=== PATIENT | male | born 1990 | race Caucasian/White ===

== ENCOUNTER 2022-01-07 21:16 | Inpatient (IN) | payer BC ==
[2022-01-07] MEDS ORDERED: HYDROmorphone 1 MG/ML 1 ML SYRINGE IVP STA ×3 (21:20→23:54)
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
[2022-01-07 21:44] LABS: Basophils # (A) 0.1 k/uL (0-0.2); Basophils % (A) 1 %; Eosinophils # (A) 0.4 k/uL (0-0.7); Eosinophils % (A) 4 %; HCT 42.7 % (39.0-53.0); HGB 14.6 gm/dL (13.0-17.5); Lymphocytes # (A) 1.8 k/uL (1.0-4.8); Lymphocytes % (A) 21 %; MCHC 34.1 g/dL (31.0-37.0); MCV 90.9 fL (80.0-100.0); Mean Platelet Volume 6.7; Monocytes # (A) 0.6 k/uL (0-1.0); Monocytes % (A) 7 %; Neutrophils # (A) 5.6 k/uL (1.3-7.7); Neutrophils % (A) 65 %; Platelet Count 269 k/uL (150-450); RDW 12.1 % (11.5-15.5); WBC 8.6 k/uL (3.8-10.6)
[2022-01-07 21:55] LABS: ALT 28 U/L (4-49); AST 30 U/L (17-59); African American GFR (CKD) >90 (>60 ml/min/1.73 sqM); Albumin 4.6 g/dL (3.5-5.0); Alkaline Phosphatase 57 U/L (38-126); Anion Gap 15 mmol/L; Blood Urea Nitrogen 19 mg/dL (9-20); Calcium 8.6 mg/dL (8.4-10.2); Carbon Dioxide 23 mmol/L (22-30); Chloride 102 mmol/L (98-107); Glucose 125 mg/dL (74-99); Non-African American GFR(CKD) >90 (>60 ml/min/1.73 sqM); Potassium 3.7 mmol/L (3.5-5.1); Sodium 140 mmol/L (137-145); Total Bilirubin 0.7 mg/dL (0.2-1.3); Total Protein 6.9 g/dL (6.3-8.2)
[2022-01-07 21:59] LABS: INR 0.9 (<1.2); Prothrombin Time 10.2 sec (9.0-12.0)
[2022-01-07 22:01] LABS: Alcohol 132 mg/dL
[2022-01-07 22:11] LABS: Partial Thromboplastin Time 20.8 sec (22.0-30.0)
--- NOTE | 2022-01-07 22:19 | XR ---
EXAMINATION TYPE: XR chest 1V portable DATE OF EXAM: 01/07/2022 COMPARISON: None HISTORY: Chest pain TECHNIQUE: FINDINGS: There is some increased density over the left upper lobe that could be some airspace infilt rate. Right lung is clear. No pneumothorax. Trachea is midline. No pleural effusion. No rib fracture seen. There is left clavicle and left scapula fracture. IMPRESSION: There is probably some left upper lobe infiltrate. Normal heart. Fractures of the left clavicle and scapula.
--- NOTE | 2022-01-07 22:20 | XR ---
EXAMINATION TYPE: XR shoulder complete LT DATE OF EXAM: 01/07/2022 COMPARISON: NONE HISTORY: Pain TECHNIQUE: 2 views FINDINGS: There is midshaft fracture of the left clavicle without significant displacement. There is a transverse fracture through the body of the scapula. No dislocation at the shoulder joint. The AC j oint appears normal. IMPRESSION: Nondisplaced fractures of the clavicle and scapula.
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
[2022-01-07] MEDS ORDERED: ONDANSETRON 4 MG/2 ML VIAL IVP PRN (23:50)
[2022-01-07] MEDS ORDERED: NALOXONE 0.4 MG/ML 1 ML VIAL IV PRN (23:50)
[2022-01-07] MEDS ORDERED: ACETAMINOPHEN TAB 325 MG TAB PO PRN (23:50)
[2022-01-07] MEDS ORDERED: SODIUM CHLORIDE 0.9% 1,000 ML IV ONE (23:54)
[2022-01-08 00:26] LABS: Glucose,Whole Blood 120 mg/dL (70-110)
[2022-01-08 01:36] LABS: Amphetamine Screen,Urine Not Detected (NotDetected); Barbiturate Screen,Urine Not Detected (NotDetected); Benzodiazepines Screen,Urine Not Detected (NotDetected); Cocaine Screen,Urine Not Detected (NotDetected); Methadone Screen, Urine Not Detected (NotDetected); Opiate Screen,Urine Detected (NotDetected); Oxycodone Screen, Urine Not Detected (NotDetected); Phencyclidine Screen,Urine Not Detected (NotDetected); Tricyclic Antidepressant,Urine Not Detected (NotDetected); Urn Cannabinoid Scrn Not Detected (NotDetected)
[2022-01-08] MEDS: HYDROmorphone 1 MG/ML 1 ML SYRINGE IVP PRN ×6 (04:39→21:23)
[2022-01-08] MEDS: SODIUM CHLORIDE 0.9% 1,000 ML IV SCH ×4 (05:30→23:24)
[2022-01-08] MEDS: HYDROcodone/APAP 5-325MG 1 EACH TAB PO PRN ×2 (06:42→10:47)
[2022-01-08] MEDS: FAMOTIDINE 20 MG TAB PO SCH ×2 (08:23→21:23)
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
[2022-01-08] MEDS ORDERED: HYDROcodone/APAP 7.5-325MG 1 EACH TAB PO PRN (11:24)
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
[2022-01-08] MEDS: KETOROLAC 15 MG/ML 1 ML VIAL IVP SCH ×3 (11:37→23:51)
--- NOTE | 2022-01-08 12:53 | XR ---
EXAMINATION TYPE: XR Hip Complete LT DATE OF EXAM: 01/08/2022 COMPARISON: NONE HISTORY: Pain TECHNIQUE: 2 views submitted FINDINGS: There is no evidence of erosive change or acute fracture. IMPRESSION: 1. No evidence of acute fracture or dislocation.
--- NOTE | 2022-01-08 13:00 | XR ---
EXAMINATION TYPE: XR ribs bilateral DATE OF EXAM: 01/08/2022 COMPARISON: 01/07/2010 HISTORY: Pain TECHNIQUE: Frontal view of the chest and oblique views of the ribs were obtained bilaterally FINDINGS: There is bilateral subsegmental consolidation. No sizable effusions. There are deformities involving the anterior or lateral margin of the left first through ninth ribs with mild displacement. There is a displaced comminuted fracture of the clavicle and fracture which appears to be comminuted involving the scapula. Ribs compatible with fracture. IMPRESSION: 1. Displaced fractures involving the left first through ninth ribs. 2. Comminuted fracture of the scapula and left clavicle. 3. Basilar subsegmental atelectasis or infiltrate. No sizable pneumothorax.
[2022-01-08] MEDS ORDERED: MELOXICAM 7.5 MG TAB PO SCH (14:15)
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
[2022-01-08] MEDS: busPIRone HCl 5 MG TAB PO SCH (16:42)
[2022-01-08] MEDS: SERTRALINE 100 MG TAB PO SCH (16:42)
[2022-01-08] MEDS: FLUTICASONE 50MCG/SPRAY NASAL 16GM EA NOSTRIL SCH (21:23)
[2022-01-08] MEDS: MONTELUKAST 10 MG TAB PO SCH (21:23)
[2022-01-09] MEDS: HYDROmorphone 1 MG/ML 1 ML SYRINGE IVP PRN ×4 (00:38→21:17)
[2022-01-09] MEDS: SODIUM CHLORIDE 0.9% 1,000 ML IV SCH ×2 (00:40→16:57)
[2022-01-09] MEDS: KETOROLAC 15 MG/ML 1 ML VIAL IVP SCH ×4 (06:19→23:18)
[2022-01-09] MEDS ORDERED: oxyCODONE-APAP 5-325MG 1 EACH TAB PO PRN (08:48)
[2022-01-09] MEDS: LORATADINE 10 MG TAB PO SCH (08:54)
[2022-01-09] MEDS: SERTRALINE 100 MG TAB PO SCH (08:54)
[2022-01-09] MEDS: ASPIRIN 81 MG PO SCH (08:54)
[2022-01-09] MEDS: busPIRone HCl 5 MG TAB PO SCH (08:54)
[2022-01-09] MEDS: FAMOTIDINE 20 MG TAB PO SCH ×2 (08:55→20:16)
[2022-01-09] MEDS: KETOTIFEN 0.025% OPHTH DROPS 5 ML BTL BOTH EYES SCH ×2 (08:55→20:16)
[2022-01-09] MEDS: FLUTICASONE 50MCG/SPRAY NASAL 16GM EA NOSTRIL SCH ×2 (08:56→20:16)
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
[2022-01-09] MEDS: HEPARIN SODIUM,PORCINE/PF 5,000 UNIT/0.5 ML SYRINGE SQ SCH ×2 (11:37→20:16)
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
[2022-01-09] MEDS: LIDOCAINE 5% PATCH TOPICAL SCH (16:54)
[2022-01-09] MEDS: oxyCODONE-APAP 10-325MG 1 EACH TAB PO PRN ×2 (16:55→23:18)
[2022-01-09] MEDS: MONTELUKAST 10 MG TAB PO SCH (20:16)
[2022-01-10] MEDS: SODIUM CHLORIDE 0.9% 1,000 ML IV SCH ×2 (02:35→10:07)
[2022-01-10] MEDS: HYDROmorphone 1 MG/ML 1 ML SYRINGE IVP PRN ×2 (03:59→13:47)
[2022-01-10] MEDS: KETOROLAC 15 MG/ML 1 ML VIAL IVP SCH ×2 (05:58→11:20)
[2022-01-10] MEDS: oxyCODONE-APAP 10-325MG 1 EACH TAB PO PRN (07:30)
[2022-01-10] MEDS: busPIRone HCl 5 MG TAB PO SCH (07:31)
[2022-01-10] MEDS: LORATADINE 10 MG TAB PO SCH (07:31)
[2022-01-10] MEDS: FAMOTIDINE 20 MG TAB PO SCH (07:31)
[2022-01-10] MEDS: ASPIRIN 81 MG PO SCH (07:31)
[2022-01-10] MEDS: SERTRALINE 100 MG TAB PO SCH (07:31)
[2022-01-10] MEDS: KETOTIFEN 0.025% OPHTH DROPS 5 ML BTL BOTH EYES SCH (07:32)
[2022-01-10] MEDS: FLUTICASONE 50MCG/SPRAY NASAL 16GM EA NOSTRIL SCH (07:32)
[2022-01-10] MEDS: HEPARIN SODIUM,PORCINE/PF 5,000 UNIT/0.5 ML SYRINGE SQ SCH (07:34)
[2022-01-10 08:08] VITALS: BP 118/78; RESP 17; TEMP 98.9
[2022-01-10 10:19] VITALS: PULSE 85
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
[2022-01-10] MEDS: LIDOCAINE 5% PATCH TOPICAL SCH (13:50)
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
== END 2022-01-10 14:48 | disposition home or self-care (01) | DRG 184 ==
LOC: EC 21:16 → 3SCARD 23:50
PROVIDERS: ADMIT Surgery; ATTEND Surgery
DX: S22.42XA Multiple fractures of ribs, left side, initial encounter for closed fracture (principal); J98.11 Atelectasis; S26.91XA Contusion of heart, unspecified with or without hemopericardium, initial encounter; F32.A Depression, unspecified; E66.9 Obesity, unspecified; S42.012A Anterior displaced fracture of sternal end of left clavicle, initial encounter for closed fracture; S42.112A Displaced fracture of body of scapula, left shoulder, initial encounter for closed fracture; M25.552 Pain in left hip; M54.50 Low back pain, unspecified; F17.210 Nicotine dependence, cigarettes, uncomplicated; G89.4 Chronic pain syndrome; R77.8 Other specified abnormalities of plasma proteins; Y90.6 Blood alcohol level of 120-199 mg/100 ml; R33.9 Retention of urine, unspecified; I51.7 Cardiomegaly; F41.9 Anxiety disorder, unspecified; R03.1 Nonspecific low blood-pressure reading; R00.0 Tachycardia, unspecified; V86.55XA Driver of 3- or 4- wheeled all-terrain vehicle (ATV) injured in nontraffic accident, initial encounter; Y92.007 Garden or yard of unspecified non-institutional (private) residence as the place of occurrence of the external cause; Z79.899 Other long term (current) drug therapy; Z79.1 Long term (current) use of non-steroidal anti-inflammatories (NSAID); Z68.28 Body mass index [BMI] 28.0-28.9, adult; Z79.891 Long term (current) use of opiate analgesic; Z72.89 Other problems related to lifestyle
CPT/HCPCS: 36415; 71045; 71110; 71260; 72125; 73502; 74177; 80053; 80306; 80320; 83605; 84484; 85025; 85610; 85730; 86850; 86900; 86901; 93005; 93306; 94760; 96374; 96376; 99285

== ENCOUNTER 2022-01-28 10:19 | Day surgery (SDC) | payer BC ==
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
[~2022-01-28 10:19] MED LIST: DEXAMETHASONE SOD PHOSPHATE 4 MG/ML 1 ML VIAL IV ONE; HYDROmorphone 0.5 MG/0.5 ML SYRINGE IVP PRN; LACTATED RINGERS 1,000 ML IV SCH; LIDOCAINE 1% (10MG/ML) FOR IV START INTRADERMA PRN; ONDANSETRON 4 MG/2 ML VIAL IVP ONE
[2022-01-28] MEDS ORDERED: MIDAZOLAM 2 MG/2 ML VIAL IVP ONE (11:32)
[2022-01-28] MEDS ORDERED: fentaNYL (PF) 50 MCG/ML 2 ML AMP IVP ONE (11:33)
[2022-01-28] MEDS ORDERED: PHENYLEPHRINE-0.9% NACL SYG 1,000 MCG/10 ML SYRINGE ONE (11:46)
[2022-01-28] MEDS ORDERED: SUCCINYLCHOLINE CHLORIDE 200 MG/10 ML VIAL IV ONE (11:46)
[2022-01-28] MEDS ORDERED: LIDOCAINE 2% INJ 20 MG/ML (2 ML VIAL) ONE (11:46)
[2022-01-28] MEDS ORDERED: PROPOFOL 10 MG/ML 20 ML VIAL IV ONE (11:46)
[2022-01-28] MEDS ORDERED: ROPIVACAINE 5 MG/ML 30 ML VIAL ONE (11:46)
[2022-01-28] MEDS ORDERED: LACTATED RINGERS 1,000 ML IV ONE (12:59)
--- NOTE | 2022-01-28 13:33 | P.ANPRN ---
Procedure Note - Anesthesia - Nerve Block Performed Left Interscalene Single Time Out Performed: Yes (1130) Date of Procedure: 01/28/22 Procedure Start Time: 11:31 Procedure Stop Time: 11:36 Location of Patient: PreOp Indication: Acute Post-Operative Pain, Requested by Surgeon Specifically requested for management of pain by DrBelen: Edmundo Mcwilliams Sedation Type: Sedate with meaningful contact maintained Preparation: Sterile Prep Position: Supine Catheter: None Needle Types: Pajunk Needle Gauge: 21 Ultrasound used to visualize needle placement: Yes Ultrasound used to observe medication spread: Yes Injectate: 0.5% Ropivacaine (see comment for volume) (30cc) Blood Aspirated: No Pain Paresthesia on Injection Noted: No Resistance on Injection: Normal Image Stored and Saved: Yes Events: Uneventful and Well Tolerated
--- NOTE | 2022-01-28 13:56 | FL ---
EXAMINATION TYPE: FL guidance operating room DATE OF EXAM: 01/28/2022 HISTORY: Fluoroscopy time 3 seconds of fluoroscopy provided. IMPRESSION: 1. Fluoroscopy time.
--- NOTE | 2022-01-28 13:56 | XR ---
EXAMINATION TYPE: XR clavicle LT DATE OF EXAM: 01/28/2022 COMPARISON: NONE HISTORY: Postop TECHNIQUE: Single intraoperative views FINDINGS: Postsurgical changes appear in near anatomic alignment. IMPRESSION: Postoperative change.
[2022-01-28 14:21] VITALS: TEMP 97
[2022-01-28 15:27] VITALS: RESP 15
[2022-01-28 15:51] VITALS: BP 114/76; PULSE 87
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
== END 2022-01-28 16:05 | disposition home or self-care (01) ==
LOC: OR 10:19
PROVIDERS: ATTEND Orthopaedic Surgery Hand Surgery
DX: S42.022A Displaced fracture of shaft of left clavicle, initial encounter for closed fracture (principal); F32.A Depression, unspecified; Z79.899 Other long term (current) drug therapy; X58.XXXA Exposure to other specified factors, initial encounter
CPT/HCPCS: 64415; 76942; 73000; 23515; C1713; J2250; J0330; J1100; J0690; J2405; J3010; J2795; J2370; J2704; J2001

== ENCOUNTER 2022-02-04 13:22 | Emergency (ER) | payer BC ==
[2022-02-04 13:37] VITALS: TEMP 98.2
[2022-02-04] MEDS ORDERED: KETOROLAC 15 MG/ML 1 ML VIAL IVP STA (15:26)
[2022-02-04] MEDS ORDERED: SODIUM CHLORIDE 0.9% 1,000 ML IV STA (15:26)
[2022-02-04] MEDS ORDERED: ONDANSETRON 4 MG/2 ML VIAL IVP STA (15:26)
--- NOTE | 2022-02-04 15:45 | ED ---
Extremity Problem HPI - General Chief complaint: Extremity Problem,Nontraumatic Stated complaint: Lt Arm Blood Clot Time Seen by Provider: 02/04/22 15:08 Source: patient, RN notes reviewed Mode of arrival: ambulatory Limitations: no limitations - History of Present Illness Initial comments: This is a 31-year-old male who presents to the emergency department for a blood clot in the left arm. He had an outpatient ultrasound ordered by Dr. Mcwilliams earlier today. This revealed the left upper extremity DVT, and Dr. Mcwilliams instructed him to come to the emergency department. The pain and swelling to the left arm has been present for 3-4 days. On 01/28, he had surgical repair of a broken left collarbone. He does note associated shortness of breath with the blood clot in the left arm, but denies any chest pain. Denies any fevers, chills, sore throat, cough, chest pain, palpitations, abdominal pain, nausea, vomiting, diarrhea, back pain, or headaches. MD Complaint: extremity pain, extremity swelling Onset/Timin -: days(s) Location: left, upper extremity Associated Symptoms: denies other symptoms - Related Data Home Medications Medication Instructions Recorded Confirmed Cetirizine HCl 10 mg PO DAILY 01/08/22 01/28/22 Fluticasone Nasal [place] [Flonase 1 spr EA NOSTRIL BID 01/08/22 01/28/22 Nasal [place]] Montelukast [Singulair] 10 mg PO DAILY PRN 01/08/22 01/28/22 Olopatadine HCl [Pataday Once 1 drop BOTH EYES DAILY 01/08/22 01/28/22 Daily Relief] Sertraline [Zoloft] 100 mg PO DAILY 01/08/22 01/28/22 busPIRone HCL [Buspar] 7.5 mg PO DAILY 01/08/22 01/28/22 Previous Rx's Medication Instructions Recorded Ibuprofen [Motrin] 600 mg PO Q8HR PRN #30 tab 01/10/22 Lidocaine 5% Patch [Lidoderm 5% 1 patch TOPICAL DAILY #5 patch 01/10/22 Patch] oxyCODONE-APAP 10-325MG [Percocet 1 each PO Q6H PRN #12 tab 01/10/22 10-325 mg] Apixaban [Eliquis] 10 mg PO BID 7 Days #28 tablet 02/04/22 Allergies Allergy/AdvReac Type Severity Reaction Status Date / Time No Known Allergies Allergy Verified 02/04/22 13:37 Review of Systems ROS Statement: Those systems with pertinent positive or pertinent negative responses have been documented in the HPI. ROS Other: All systems not noted in ROS Statement are negative. Past Medical History Past Medical History: No Reported History History of Any Multi-Drug Resistant Organisms: None Reported Past Surgical History: Tonsillectomy Additional Past Surgical History / Comment(s): collar bone repair Past Psychological History: Depression Smoking Status: Never smoker General Exam Limitations: no limitations General appearance: alert, in no apparent distress Head exam: Present: atraumatic, normocephalic, normal inspection Respiratory exam: Present: normal lung sounds bilaterally. Absent: respiratory distress, wheezes, rales, rhonchi, stridor Cardiovascular Exam: Present: regular rate, normal rhythm, normal heart sounds. Absent: systolic murmur, diastolic murmur, rubs, gallop, clicks Extremities exam: Present: other (Pain, erythema, and swelling to the left upper extremity, particularly near the left humerus.) Neurological exam: Present: alert, oriented X3, CN II-XII intact Psychiatric exam: Present: normal affect, normal mood Skin exam: Present: warm, dry, intact, normal color. Absent: rash Course Vital Signs 02/04/22 02/04/22 02/04/22 13:33 16:36 17:50 Temperature 98.2 F Pulse Rate 100 96 94 Respiratory 20 18 18 Rate Blood Pressure 136/84 128/81 124/81 O2 Sat by Pulse 99 98 96 Oximetry Medical Decision Making - Medical Decision Making This is a 31-year-old male who presents to the emergency department with a left upper extremity DVT. Given the associated shortness of breath, CTA of the chest was obtained. This did not identify a pulmonary embolus, however it did note a left pleural effusion with infiltrate and atelectasis. Discussed with the patient that he needs to be sure that he is taking several deep breaths a day to reduce the shortness of breath from the atelectasis. Given that the clot is limited to the arm, the patient is stable for discharge home. He was given 10 mg of Eliquis in the emergency department and a 7 day course was sent to his pharmacy. He will take 10 mg twice daily for 7 days. Follow-up with vascular surgery was provided, he will need to make an appointment and discuss with them how long after the 7 days he will need to remain on the Eliquis. Return precautions reviewed in depth, the patient is instructed to return to the emergency department with any new, worsening, or concerning symptoms. Patient verbalized understanding. This case was discussed in detail with the attending ED physician. Presentation, findings, and treatment plan discussed in detail as well. - Lab Data Result diagrams: 02/04/22 15:42 02/04/22 15:42 Lab Results 02/04/22 02/04/22 02/04/22 Range/Units 15:42 15:42 15:42 WBC 8.0 (3.8-10.6) k/uL RBC 4.91 (4.30-5.90) m/uL Hgb 15.2 (13.0-17.5) gm/dL Hct 43.7 (39.0-53.0) % MCV 89.1 (80.0-100.0) fL MCH 31.0 (25.0-35.0) pg MCHC 34.8 (31.0-37.0) g/dL RDW 11.8 (11.5-15.5) % Plt Count 413 (150-450) k/uL MPV 6.9 Neutrophils % 64 % Lymphocytes % 21 % Monocytes % 6 % Eosinophils % 7 % Basophils % 1 % Neutrophils # 5.1 (1.3-7.7) k/uL Lymphocytes # 1.6 (1.0-4.8) k/uL Monocytes # 0.5 (0-1.0) k/uL Eosinophils # 0.6 (0-0.7) k/uL Basophils # 0.0 (0-0.2) k/uL PT (9.0-12.0) sec INR (<1.2) APTT (22.0-30.0) sec Sodium 141 (137-145) mmol/L Potassium 4.4 (3.5-5.1) mmol/L Chloride 101 (98-107) mmol/L Carbon Dioxide 25 (22-30) mmol/L Anion Gap 15 mmol/L BUN 17 (9-20) mg/dL Creatinine 0.83 (0.66-1.25) mg/dL Est GFR (CKD-EPI)AfAm >90 (>60 ml/min/1.73 sqM) Est GFR (CKD-EPI)NonAf >90 (>60 ml/min/1.73 sqM) Glucose 108 H (74-99) mg/dL Calcium 9.6 (8.4-10.2) mg/dL Total Bilirubin 0.4 (0.2-1.3) mg/dL AST 31 (17-59) U/L ALT 38 (4-49) U/L Alkaline Phosphatase 107 (38-126) U/L Troponin I <0.012 (0.000-0.034) ng/mL NT-Pro-B Natriuret Pep pg/mL Total Protein 7.7 (6.3-8.2) g/dL Albumin 4.6 (3.5-5.0) g/dL 02/04/22 02/04/22 Range/Units 15:42 15:42 WBC (3.8-10.6) k/uL RBC (4.30-5.90) m/uL Hgb (13.0-17.5) gm/dL Hct (39.0-53.0) % MCV (80.0-100.0) fL MCH (25.0-35.0) pg MCHC (31.0-37.0) g/dL RDW (11.5-15.5) % Plt Count (150-450) k/uL MPV Neutrophils % % Lymphocytes % % Monocytes % % Eosinophils % % Basophils % % Neutrophils # (1.3-7.7) k/uL Lymphocytes # (1.0-4.8) k/uL Monocytes # (0-1.0) k/uL Eosinophils # (0-0.7) k/uL Basophils # (0-0.2) k/uL PT 9.9 (9.0-12.0) sec INR 0.9 (<1.2) APTT 27.7 (22.0-30.0) sec Sodium (137-145) mmol/L Potassium (3.5-5.1) mmol/L Chloride (98-107) mmol/L Carbon Dioxide (22-30) mmol/L Anion Gap mmol/L BUN (9-20) mg/dL Creatinine (0.66-1.25) mg/dL Est GFR (CKD-EPI)AfAm (>60 ml/min/1.73 sqM) Est GFR (CKD-EPI)NonAf (>60 ml/min/1.73 sqM) Glucose (74-99) mg/dL Calcium (8.4-10.2) mg/dL Total Bilirubin (0.2-1.3) mg/dL AST (17-59) U/L ALT (4-49) U/L Alkaline Phosphatase (38-126) U/L Troponin I (0.000-0.034) ng/mL NT-Pro-B Natriuret Pep 19 pg/mL Total Protein (6.3-8.2) g/dL Albumin (3.5-5.0) g/dL - Radiology Data Radiology results: report reviewed, image reviewed Disposition Clinical Impression: Deep vein thrombosis (DVT) of upper extremity Disposition: HOME SELF-CARE Instructions (If sedation given, give patient instructions): Deep Vein Thrombosis (ED), Atelectasis (ED) Additional Instructions: Return to the emergency department with any new, worsening, or concerning symptoms. Take the Eliquis as prescribed, twice daily for 7 days. You'll need to follow up with your primary care provider and the vascular surgeon listed below to discuss how long to continue the Eliquis. Make sure that you're taking deep breaths several times each day, which will eventually help with you feeling short of breath. Prescriptions: Apixaban [Eliquis] 10 mg PO BID 7 Days #28 tablet Is patient prescribed a controlled substance at d/c from ED?: No Referrals: Horacio Nguyen MD [Primary Care Provider] - 1-2 days Morris Cabrera MD [STAFF PHYSICIAN] - 1-2 days
[2022-02-04 15:53] LABS: Basophils % (A) 1 %; Eosinophils # (A) 0.6 k/uL (0-0.7); Eosinophils % (A) 7 %; HCT 43.7 % (39.0-53.0); HGB 15.2 gm/dL (13.0-17.5); Lymphocytes # (A) 1.6 k/uL (1.0-4.8); Lymphocytes % (A) 21 %; MCHC 34.8 g/dL (31.0-37.0); MCV 89.1 fL (80.0-100.0); Mean Platelet Volume 6.9; Monocytes # (A) 0.5 k/uL (0-1.0); Monocytes % (A) 6 %; Neutrophils # (A) 5.1 k/uL (1.3-7.7); Neutrophils % (A) 64 %; Platelet Count 413 k/uL (150-450); RBC 4.91 m/uL (4.30-5.90); RDW 11.8 % (11.5-15.5)
[2022-02-04] MEDS ORDERED: oxyCODONE-APAP 10-325MG 1 EACH TAB PO ONE (15:58)
[2022-02-04 16:01] LABS: ALT 38 U/L (4-49); AST 31 U/L (17-59); African American GFR (CKD) >90 (>60 ml/min/1.73 sqM); Albumin 4.6 g/dL (3.5-5.0); Alkaline Phosphatase 107 U/L (38-126); Anion Gap 15 mmol/L; Blood Urea Nitrogen 17 mg/dL (9-20); Calcium 9.6 mg/dL (8.4-10.2); Carbon Dioxide 25 mmol/L (22-30); Chloride 101 mmol/L (98-107); Glucose 108 mg/dL (74-99); Non-African American GFR(CKD) >90 (>60 ml/min/1.73 sqM); Potassium 4.4 mmol/L (3.5-5.1); Sodium 141 mmol/L (137-145); Total Bilirubin 0.4 mg/dL (0.2-1.3); Total Protein 7.7 g/dL (6.3-8.2)
[2022-02-04 16:06] LABS: INR 0.9 (<1.2); Partial Thromboplastin Time 27.7 sec (22.0-30.0); Prothrombin Time 9.9 sec (9.0-12.0)
[2022-02-04 16:40] VITALS: RESP 18
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
[2022-02-04] MEDS ORDERED: APIXABAN 5 MG TAB PO ONE (17:16)
[2022-02-04 17:51] VITALS: BP 124/81; PULSE 94
== END 2022-02-04 17:51 | disposition home or self-care (01) ==
LOC: EC 13:22
DX: I82.622 Acute embolism and thrombosis of deep veins of left upper extremity (principal)
CPT/HCPCS: 96374; 96375; 96361; 36415; 83880; 80053; 84484; 85025; 85610; 85730; 71275; 99284; J2405; J1885; Q9967

== ENCOUNTER → 2022-02-04 | Outpatient (CLI) | payer BC ==
--- NOTE | 2022-02-04 13:53 | US ---
EXAMINATION TYPE: US venous doppler duplex UE LT DATE OF EXAM: 02/04/2022 COMPARISON: NONE CLINICAL HISTORY: M79.622 PAIN IN L UPPER ARM, R22.32 MASS L ARM. Left arm pain and swelling s/p left clavicle surgery SIDE PERFORMED: Left Grayscale, color doppler, spectral doppler imaging performed of the deep veins of the left upper extr emity Visualized portions of the left internal jugular vein are patent. Left cephalic vein appears patent. The left axillary vein shows low level internal echoes and lack of color flow, left basilic vein also shows low level internal echoes and lack of color flow and compressibility. The brachial veins show low-level internal echoes and lack of compressibility, lack of color flow. Radial and ulnar veins lori ear patent. Left Arm: Positive for DVT left axillary, basilic, brachial veins Left subclavian veins not visualized due to bandage and surgical incision Results called to Tami at Dr's office at time of exam IMPRESSION: . Limitations as described. Deep venous thrombosis is noted in the left upper extremity. Report rela yed by the technologist to referring clinician's office and to the clinician via perfect serve
== END | disposition home or self-care (01) ==
LOC: RADUSWWP 12:01
PROVIDERS: ATTEND Orthopaedic Surgery Hand Surgery
DX: M79.622 Pain in left upper arm (principal); R22.32 Localized swelling, mass and lump, left upper limb

== ENCOUNTER 2022-05-27 13:01 | Emergency (ER) | payer BC ==
[2022-05-27 13:07] VITALS: RESP 16; TEMP 98.1
[2022-05-27] MEDS ORDERED: CYCLOBENZAPRINE 5 MG TAB PO STA (14:20)
--- NOTE | 2022-05-27 15:42 | US ---
EXAMINATION TYPE: US venous doppler duplex UE LT DATE OF EXAM: 05/27/2022 02/04/2022 COMPARISON: US CLINICAL HISTORY: neck pain, hx of LT UE DVT. Pt states pain left side of neck, previous DVT left arm , currently not on blood thinners x 2 weeks SIDE PERFORMED: Left Left Arm: No evidence of acute DVT Within left Axillary, Basilic and brachial veins where prior DVT was located there is thready flow and partial compression consistent with non-occluding chronic thrombus, thready flow within distal he bclavian vein also IMPRESSION: 1. No evidence for acute deep vein thrombosis of the left upper extremity. 2. There is thready flow with partial compressibility consistent with nonocclusive chronic thrombus d emonstrated within the left axillary, basilic, brachial veins when compared to most recent exam on .
--- NOTE | 2022-05-27 15:54 | CT ---
EXAMINATION TYPE: CT neck chest w con DATE OF EXAM: 05/27/2022 3:44 PM COMPARISON: CT cervical spine 01/07/2022. HISTORY: left sided neck pain CT DLP: 909 mGycm Automated exposure control for dose reduction was used. CONTRAST: CT scan of the neck and chest is performed following with IV Contrast, patient injected with 100 mL o f Isovue 300. Axial images are obtained, coronal and sagittal reformatted images are reviewed. FINDINGS: Airway: No gross abnormality seen. Parotid/submandibular glands: The submandibular glands are symmetric and unremarkable. Bilateral sub centimeter intraparotid likely lymph nodes. Carotid/Vascular Structures: Patent Osseous Structures: No acute osseous abnormality. Multiple remote left-sided second through fifth rib fractures. Post surgical changes with fixation plate involving the left clavicle. Removal left scapu la fracture. Other: A few nonenlarged cervical lymph nodes are identified. Lungs/pleura: No pleural effusion, pneumothorax, focal consolidation. No suspicious pulmonary nodule or mass. Large airways: Patent. Heart and pericardium: Heart is normal in size. No pericardial effusion. Mediastinum and jasbir: No pathologically enlarged lymph nodes. Vessels: Patent. No thoracic aortic aneurysm. Chest wall/diaphragm: Unremarkable Upper abdomen: Liver is diffusely hypoattenuating. IMPRESSION: 1. No acute process. 2. Multiple remote left-sided second rib fractures with comminuted remote left scapular fracture and postsurgical fixation changes of the left clavicle. 3. Hepatic steatosis.
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
[2022-05-27 16:34] VITALS: BP 127/80; PULSE 80
== END 2022-05-27 16:34 | disposition home or self-care (01) ==
LOC: EC 13:01
DX: S16.1XXA Strain of muscle, fascia and tendon at neck level, initial encounter (principal); F32.A Depression, unspecified; X58.XXXA Exposure to other specified factors, initial encounter
CPT/HCPCS: 93971; 70491; 71260; 99283; Q9967